=== PATIENT | male | born 1935 | race Caucasian/White ===

== ENCOUNTER 2020-10-05 07:25 | Day surgery (SDC) | payer BC ==
[2020-10-05] VITALS (8 sets, daily range): BP systolic 103–121; BP diastolic 67–84
[~2020-10-05] VITALS: Ht 167.6 cm; Wt 67.9 kg
[~2020-10-05 07:25] MED LIST: COU4T PO; DOCUMENT DATE & TIME OF BETA-BLOCKER PO ONE; GLE400T PO; METO-384 PO; OMEP20TA5 PO; cefazolin/dext.iso 2gm/100ml IV ONE; famotidine 20mg tablet PO ONE; ringers solution, lacted 1,000 ML IV SCH
[2020-10-05 08:46] LABS: BASOPHILS # (AUTO) 0.1 X10'3 (0-0.2); BASOPHILS % (AUTO) 1.4 % (0-1); EOSINOPHILS # (AUTO) 0.3 X10'3 (0-0.9); EOSINOPHILS % (AUTO) 6.5 % (0-6); LYMPHOCYTES # (AUTO) 1.1 X10'3 (1.1-4.8); LYMPHOCYTES % (AUTO) 24.7 % (21-51); MEAN CORPUSCULAR HEMOGLOBIN 31.8 PG (27.0-31.0); MEAN CORPUSCULAR HGB CONC 33.2 g/dL (33.0-36.5); MEAN CORPUSCULAR VOLUME 95.9 FL (78-98); MEAN PLATELET VOLUME 8.4 FL (7.4-10.4); MONOCYTES # (AUTO) 0.3 X10'3 (0-0.9); MONOCYTES % (AUTO) 7.8 % (2-12); NEUTROPHILS # (AUTO) 2.6 X10'3 (1.8-7.7); NEUTROPHILS % (AUTO) 59.6 % (42-75); PRE OP PLATELET COUNT 201 X10'3 (140-440); RED BLOOD COUNT 3.44 X10'6 (4.70-6.10); RED CELL DISTRIBUTION WIDTH 17.4 % (11.5-14.5)
[2020-10-05 08:56] LABS: ALBUMIN 3.3 G/DL (3.4-5.0); ALBUMIN/GLOBULIN RATIO 1.3 (1.1-1.5); ALKALINE PHOSPHATASE 119 IU/L (46-116); BLOOD UREA NITROGEN 14 MG/DL (7-18); BUN/CREATININE RATIO 14.7 (5.4-32.0); CALCIUM 8.4 MG/DL (8.5-10.1); CHLORIDE 110 MMOL/L (99-107); CREATININE 0.95 MG/DL (0.60-1.10); PRE OP ALT 27 U/L (30-65); PRE OP ANION GAP 7 (8-16); PRE OP AST 31 U/L (10-37); PRE OP BILIRUB, TOTAL 0.4 MG/DL (0.0-1.0); PRE OP GLUCOSE 101 MG/DL (70-104); PRE OP POTASSIUM 4.1 MMOL/L (3.4-5.1); PRE OP PROTIME 17.3 SECONDS (9.0-12.0); PRE OP SODIUM 144 MMOL/L (135-145); TOTAL CARBON DIOXIDE 27.1 MMOL/L (24-32); TOTAL PROTEIN 5.9 G/DL (6.4-8.2); eGFR 76 ML/MIN
[2020-10-05 09:03] LABS: PRE OP INR 1.7 INR
[2020-10-05 10:03] LABS: CLARITY,URINE CLEAR (Clear); COLOR,URINE YELLOW (Yellow); GLUCOSE, URINE NEGATIVE (Neg); KETONES,URINE TRACE mg/dl (Neg); LEUKOCYTE ESTERASE ,URINE TRACE (Neg); NITRITES, URINE NEGATIVE (Neg); OCCULT BLOOD,URINE NEGATIVE (Neg); PROTEIN,URINE 30 mg/dl (Neg); UROBILINOGEN,URINE 0.2 E.U/dL (0.2-1.0)
[2020-10-05] MEDS ORDERED: LIDOcaine 1% 30ml preserv. free vial ONE (10:05)
[2020-10-05 10:07] LABS: UA COLLECTION TYPE VOIDED
[2020-10-05 10:09] LABS: RBC,URINE 0-2 /HPF (0-2); WBC,URINE 0-4 /HPF (0-4)
[2020-10-05 10:10] LABS: BACTERIA,URINE FEW /HPF (Neg); HYALINE CASTS 0-3 /LPF (NEGATIVE); MUCUS STRANDS MODERATE /LPF (Neg); SQUAMOUS EPITHELIAL CELL,UR FEW /LPF (FEW)
[2020-10-05] MEDS ORDERED: fentaNYL/PF 50MCG/1 ML 2ML syringe ONE (10:14)
[2020-10-05] MEDS ORDERED: midazolam 1 mg/ML 2ml injection ONE (10:14)
[2020-10-05] MEDS ORDERED: proCHLORperazine 10 MG/2 ml inj IV PRN (10:20)
[2020-10-05] MEDS ORDERED: morphine 2 MG/ML inj. syringe IV PRN (10:20)
[2020-10-05] MEDS ORDERED: morphine 4 MG/ML inj SYRINge IV PRN (10:20)
[2020-10-05] MEDS ORDERED: meperidine/PF 25mg/ml syringe IV PRN ×3 (10:20)
[2020-10-05] MEDS ORDERED: ondansetron/PF 4mg/2ml inj IV PRN (10:20)
[2020-10-05] MEDS ORDERED: ringers solution, lacted 1,000 ML IV SCH (10:20)
[2020-10-05] MEDS ORDERED: propofol inj 20 ML IV ONE (11:14)
[2020-10-05] MEDS ORDERED: metoprolol tartrate 1mg/ml inj IV ONE (11:15)
[2020-10-05] MEDS ORDERED: digoxin 250mcg/ml 2ml ampule ONE (11:15)
--- NOTE | 2020-10-05 11:21 | NUR ---
Received from OR via [facility] IN STABLE CONDITION , accompanied by Anesthesiologist and SHIP KEEPER report given by Christiano. Addendum: 10/05/20 at 1210 by Portia العراقي RN Amended: Links added.
[2020-10-05] MEDS ORDERED: HYDROcodone/acetaminophen 10/325mg tab PO PRN (11:35)
--- NOTE | 2020-10-05 12:31 | NUR ---
PATIENT DISCHARGED FROM PACU IN STABLE CONDITION AFTER WRITTEN AND VERBAL DISCHARGE INSTRUCTIONS GIVEN. PATIENT GAVE VERBAL UNDERSTANDING OF INSTUCTIONS GIVEN. PATIENT LEFT FACILITY VIA WHEELCHAIR WITH RN AFTER LEFT ARM PLACED IN SLING. Addendum: 10/05/20 at 1252 by Portia العراقي RN Amended: Links added.
== END 2020-10-05 12:31 | disposition home or self-care (01) ==
LOC: PAS 07:25
PROVIDERS: ATTEND Surgery
DX: Z45.010 Encounter for checking and testing of cardiac pacemaker pulse generator [battery] (principal); I48.91 Unspecified atrial fibrillation; I10 Essential (primary) hypertension; Z87.891 Personal history of nicotine dependence; K21.9 Gastro-esophageal reflux disease without esophagitis; Z85.46 Personal history of malignant neoplasm of prostate; Z86.73 Personal history of transient ischemic attack (TIA), and cerebral infarction without residual deficits; Z98.890 Other specified postprocedural states; Z96.619 Presence of unspecified artificial shoulder joint; Z88.0 Allergy status to penicillin; Z79.899 Other long term (current) drug therapy
CPT/HCPCS: 33228; 36415; 71045; 80053; 81001; 82948; 85025; 85610; 85730; 86885; 86900; 86901; 87088; 93005; C1785; J1160; J2001; J2250; J2704; J3010; A4215; A4565; A6258; A7000; J3490; J7120